=== PATIENT | female | born 1990 | race Two or more races ===

== ENCOUNTER 2020-09-10 04:23 | Day surgery (SDC) | payer OTHER ==
[2020-09-09 15:36] VITALS: BMI 30.1
[2020-09-10] MEDS ORDERED: MIDAZOLAM HCL 2 MG/2 ML SINGLE DOSE VIAL ONE (09:22)
[2020-09-10 10:35] VITALS: TEMP 98
[2020-09-10 11:46] VITALS: BP 103/58; PULSE 69
[2020-09-10] MEDS ORDERED: ONDANSETRON 4 MG/2 ML VIAL IVPUSH PRN (12:47)
[2020-09-10] MEDS ORDERED: ACETAMINOPHEN 325 MG TABLET (FP) PO PRN (12:47)
[2020-09-10] MEDS ORDERED: LACTATED RINGERS SOLUTION 1,000 ML IV SCH (13:00)
== END 2020-09-10 11:47 | disposition home or self-care (01) ==
LOC: JASU-SURG 04:23
PROVIDERS: ATTEND Urology
PROC: 0TF3XZZ Fragmentation in Right Kidney Pelvis, External Approach (ICD-10-PCS; principal; 2020-09-10 09:30)
DX: N20.0 Calculus of kidney (principal)
CPT/HCPCS: 84703

== ENCOUNTER 2020-12-03 04:17 | Day surgery (SDC) | payer OTHER ==
[2020-11-29 18:53] VITALS: BMI 34.7
[2020-12-03] MEDS ORDERED: MIDAZOLAM HCL 2 MG/2 ML SINGLE DOSE VIAL ONE (09:38)
[2020-12-03] MEDS ORDERED: PROPOFOL 20 ML ONE (10:35)
[2020-12-03 12:24] VITALS: BP 102/60; PULSE 62
[2020-12-03 12:32] VITALS: TEMP 97.7
== END 2020-12-03 12:30 | disposition home or self-care (01) ==
LOC: JASU-SURG 04:17
PROVIDERS: ATTEND Urology
PROC: 0TF3XZZ Fragmentation in Right Kidney Pelvis, External Approach (ICD-10-PCS; principal; 2020-12-03 08:45)
DX: N20.0 Calculus of kidney (principal)
CPT/HCPCS: 84703

== ENCOUNTER 2021-04-08 04:11 | Day surgery (SDC) | payer OTHER ==
[2021-04-04 17:26] VITALS: BMI 31.9
[2021-04-08] MEDS ORDERED: MIDAZOLAM HCL 2 MG/2 ML SINGLE DOSE VIAL ONE (07:35)
[2021-04-08] MEDS ORDERED: PROPOFOL 20 ML ONE ×3 (07:35)
[2021-04-08] MEDS ORDERED: ONDANSETRON 4 MG/2 ML VIAL IVPUSH PRN (08:54)
[2021-04-08] MEDS ORDERED: ACETAMINOPHEN 325 MG TABLET (FP) PO PRN (08:54)
[2021-04-08] MEDS ORDERED: oxyCODONE HCL 5 MG TABLET PO PRN (08:54)
[2021-04-08] MEDS ORDERED: LACTATED RINGERS SOLUTION 1,000 ML IV SCH (09:00)
[2021-04-08 13:24] VITALS: BP 124/75; PULSE 67; TEMP 97.9
== END 2021-04-08 10:49 | disposition home or self-care (01) ==
LOC: JASU-SURG 04:11
PROVIDERS: ATTEND Urology
PROC: 0TF4XZZ Fragmentation in Left Kidney Pelvis, External Approach (ICD-10-PCS; principal; 2021-04-08 08:03)
DX: N20.0 Calculus of kidney (principal)
CPT/HCPCS: 81025

== ENCOUNTER 2021-08-15 04:50 | Day surgery (SDC) | payer OTHER ==
[2021-08-14 17:57] VITALS: BMI 30.6
[2021-08-15] MEDS ORDERED: PROPOFOL 20 ML ONE (11:50)
[2021-08-15] MEDS ORDERED: ceFAZolin 2 GRAM PREMIX BAG IVPB ONE (11:55)
[2021-08-15] MEDS ORDERED: oxyCODONE HCL 5 MG TABLET PO PRN (13:05)
[2021-08-15] MEDS ORDERED: ONDANSETRON 4 MG/2 ML VIAL IVPUSH PRN (13:05)
[2021-08-15] MEDS ORDERED: LACTATED RINGERS SOLUTION 1,000 ML IV SCH (13:15)
[2021-08-15 14:06] VITALS: TEMP 97.7
[2021-08-15 15:03] VITALS: BP 115/68; PULSE 65
== END 2021-08-15 15:05 | disposition home or self-care (01) ==
LOC: JASU-SURG 04:50
PROVIDERS: ATTEND Urology
PROC: BT1FYZZ Fluoroscopy of Left Kidney, Ureter and Bladder using Other Contrast (ICD-10-PCS; 2021-08-15)
PROC: 0TC48ZZ Extirpation of Matter from Left Kidney Pelvis, Via Natural or Artificial Opening Endoscopic (ICD-10-PCS; principal; 2021-08-15 12:00)
PROC: 0T778DZ Dilation of Left Ureter with Intraluminal Device, Via Natural or Artificial Opening Endoscopic (ICD-10-PCS; 2021-08-15 12:00)
DX: N20.0 Calculus of kidney (principal)
CPT/HCPCS: 81025; 94760

== ENCOUNTER 2021-09-12 04:39 | Day surgery (SDC) | payer OTHER ==
[2021-09-10 17:08] VITALS: BMI 30.7
[2021-09-12] MEDS ORDERED: ceFAZolin SODIUM 1 GM VIAL IVPB ONE ×2 (11:36→12:00)
[2021-09-12] MEDS ORDERED: DEXAMETHASONE SOD PHOSPHATE 4 MG/1 ML VIAL ONE (11:47)
[2021-09-12] MEDS ORDERED: SEVOFLURANE 250 ML BTL ONE (11:47)
[2021-09-12] MEDS ORDERED: KETOROLAC TROMETHAMINE 30 MG/1 ML VIAL ONE (11:47)
[2021-09-12] MEDS ORDERED: ceFAZolin SODIUM 1 GM VIAL ONE (11:47)
[2021-09-12] MEDS ORDERED: PROPOFOL 20 ML ONE (11:49)
[2021-09-12] MEDS ORDERED: MIDAZOLAM HCL 2 MG/2 ML SINGLE DOSE VIAL ONE (11:49)
[2021-09-12] MEDS ORDERED: oxyCODONE HCL 5 MG TABLET PO PRN (13:43)
[2021-09-12] MEDS ORDERED: ONDANSETRON 4 MG/2 ML VIAL IVPUSH PRN (13:43)
[2021-09-12] MEDS ORDERED: LACTATED RINGERS SOLUTION 1,000 ML IV SCH (13:45)
[2021-09-12] MEDS ORDERED: oxyCODONE HCL 5 MG TABLET ONE (13:58)
[2021-09-12 14:43] VITALS: BP 103/65; PULSE 67; TEMP 97.5
== END 2021-09-12 14:52 | disposition home or self-care (01) ==
LOC: JASU-SURG 04:39
PROVIDERS: ATTEND Urology
PROC: 0T768DZ Dilation of Right Ureter with Intraluminal Device, Via Natural or Artificial Opening Endoscopic (ICD-10-PCS; principal; 2021-09-12 12:00)
PROC: 0TF38ZZ Fragmentation in Right Kidney Pelvis, Via Natural or Artificial Opening Endoscopic (ICD-10-PCS; 2021-09-12 12:00)
DX: N20.0 Calculus of kidney (principal)
CPT/HCPCS: 81025; 94760